=== PATIENT | female | born 1960 | race Caucasian/White ===

== ENCOUNTER → 2017-12-11 14:52 | Outpatient (CLI) | payer MEDICARE, OTHER, SELFPAY ==
[2017-12-11 17:49] LABS: Hematocrit 38.1 % (37-47); Hemoglobin 12.4 g/dl (12.0-15.0); Mean Corp Hgb Conc 32.5 g/gl (32-36); Mean Corpuscular Hgb 32.5 pg (27.0-32.0); Mean Platelet Vol. 10.9 fl (6.2-12.0); Platelet Count 227 K/mm3 (150-450); RBC Distribution Width CV 13.7 % (11.6-14.6); RBC Distribution Width SD 49.8 fl (35.1-43.9); Red Blood Count 3.81 M/mm3 (4.2-5.4); White Blood Count 5.7 K/mm3 (4.4-11.0)
[2017-12-11 17:51] LABS: Scan Indicated on CBC? Y/N NO
== END ==
PROVIDERS: Visit Provider Surgery
DX: K62.5 Hemorrhage of anus and rectum (principal)
CPT/HCPCS: 36415; 85027

== ENCOUNTER 2018-01-09 08:56 | Day surgery (SDC) | payer MEDICARE, OTHER, SELFPAY ==
[2018-01-09] VITALS (7 sets, daily range): BP systolic 141–158; BP diastolic 97–105; PULSE 78–91; RESP 16–18; TEMP 36.2–36.3; O2SAT 91–99; BMI 39.6
--- NOTE | 2018-01-09 11:30 | POL_PTH ---
PATIENT: ANABEL PURVIS LOC: EN U#:[id number] AGE/SX: 57/F ROOM: RE01/09/[address]: Dr. Giselle Moeller MD : 1960 BED: DIS: 01/09/2018 SPEC #: [id number] RECD: 01/09/18 12:35 STATUS: ANNIE ROLANDO #: [id number] [place]: 01/09/18 11:[address]: Giselle Moeller DEPT: SURGICAL PATHOLOGY RECD BY: Jose Salazar ENTERED: 01/09/18 13:09 SP TYPE: Polyp OT DR: Out of Town Doctor Tissues: A - Rectum, NOS B - Rectum, NOS C - Rectum, NOS D - POLYP Procedures: Surgery Specimen Level IV HEADER OPERATION: Colonoscopy with polypectomy; postop control of colonoscopy bleeding PRE-OP DIAGNOSIS: Rectal bleed; post colonoscopy bleeding TISSUE SUBMITTED: A ? Rectal polyp top, B - Rectal polyp mid, C - Rectal polyp base, D ? Rectal polyp and clips MICROSCOPIC DIAGNOSIS A. 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 B. 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 C. Rectal polyp, base, biopsy: Fragments of tubulovillous adenoma. D. Rectal polyp, biopsy: Fragments of tubulovillous adenoma. AM:jordan 01/10/18 MICROSCOPIC DESCRIPTION Slides are reviewed. GROSS DESCRIPTION A - Received in fixative is one container labeled with the patient's name and designated rectal polyp. The specimen consists of multiple irregular fragments of light [place] soft tissue that in aggregate measure 2.5 x 1.5 x 0.2 cm. Also present in the specimen container is a polypoid fragment of [place] rio tissue measuring 1.5 x 1.2 x 0.9 cm. This large fragment is inked, sectioned and totally submitted along with the smaller fragments in one cassette. B - Received in fixative is one container labeled with the patient's name and designated rectal polyp. The specimen consists of multiple irregular fragments of light [place] soft tissue that in aggregate measure 2.5 x 1.7 x 0.2 cm. The specimen is totally submitted in one cassette. C - Received in fixative is one container labeled with the patient's name and designated rectal polyp base. The specimen consists of a polypoid fragment of [place] rio tissue measuring 1.5 x 1.3 x 1 cm. This fragment is inked and serially sectioned. Also present in the specimen container are multiple irregular fragments of pink-del rio soft tissue that in aggregate measure 1 x 0.5 x 0.1 cm. The specimen is totally submitted in one cassette. Note, the largest inked fragment is trisected. D - Received in fixative is one container labeled with the patient's name and designated rectal polyp and clips. The specimen consists of three metallic clips adherent to an irregular fragment of pink-del rio soft tissue measuring 1.2 x 1 x 0.2 cm. The specimen is totally submitted in one cassette. / AM:jordan 01/09/18 TC:5 CPT: 02861 x4
[2018-01-09] MEDS: Bupiv/Epi 0.5% Mpf 30 ML Vial (11:44)
[2018-01-09] MEDS: Dibucaine 30 GM Tube 1 APPLIC (11:53)
[2018-01-09] MEDS: THROMBIN (RECOMBINANT) 20,000 UNIT VIAL 20000 UNIT TOPICAL (11:53)
--- NOTE | 2018-01-09 12:22 | OP.PCM_ITS ---
Report of Operation Date of Procedure: 01/09/18 Pre-Operative Diagnosis: Bright red bright blood per rectum Post-Operative Diagnosis: Rectal polyp, bleeding at rectal polypectomy site Surgery/Procedure Performed:: Colonoscopy with saline left, injection epinephrine, rectal polypectomy with snare, placement of 3 endoclips for control of bleeding. supervisor chassis assembly: Mika Savage Type of Anesthesia:: MAC Anesthesiologist: Ramirez Forrest Specimen's removed: 1. Rectal polyp top, 2. Rectal polyp middle, 3. Rectal polyp base Estimated Blood Loss (mL): 50 cc Description of Procedure: Procedure: Colonoscopy After reviewing the risks benefits, the patient was deemed in satisfactory condition to undergo procedure. After obtaining informed consent, the scope was passed under direct visualization. Throughout the procedure, the patient's blood pressure pulse and position saturations were monitored continuously anesthesia. The colonoscope was introduced through the anus and advanced to the cecum, identified by the appendiceal orifice, IC valve and transillumination. Quality of bowel prep was good. The ascending/transverse/descending/sigmoid colon were all normal without any polyp or masses. In the rectum about 7 cm from the anus there was larger rectal polyp. This was attempted to be removed with snare polypectomy which was done piecemeal sent for histology and initial saline lift of the broad base was done. After the last snare polypectomy there was a small arterial bleeder. Attempted to stop the bleeding with injection of epinephrine for a total of [address] Savage was also present at this time and also attempted to inject additional epinephrine as well as place 3 endoclips to control the bleeding. We were able to get the bleeding down to a slow ooze; however there was still a small area of the base of the polyp remaining and with the slow oozing decided to take the patient to the OR for control of bleeding and excision of the remaining polyp. The patient tolerated procedure well and remained hemodynamically stable throughout the procedure. Findings: Rectal polyp with bleeding at polypectomy site Impression: 1. Rectal polyp with bleeding polypectomy site. Rectal polyp was sent to pathology. Verbal consent was obtained from the patient's aunt due to the patient being sedated and we did proceed to the OR for control of bleeding and excision of remainder of rectal polyp. - Complications Bleeding at polypectomy site
--- NOTE | 2018-01-09 12:22 | PCM.OPRPT ---
Report of Operation Date of Procedure: 01/09/18 Pre-Operative Diagnosis: Bleeding and rectal polypectomy site Post-Operative Diagnosis: Same Surgery/Procedure Performed:: Control of bleeding and a rectal polypectomy site, excision of remaining rectal polyp grain origination specialist: Mika Savage Type of Anesthesia:: MAC Anesthesiologist: Ramirez Forrest Specimen's removed: Rectal polyp and endoclips Estimated Blood Loss (mL): 10 cc Description of Procedure: Patient was brought into the OR and placed in prone jackknife position on the OR table. MAC anesthesia was induced. local anesthesia was also used of 1% lidocaine with 0.25% Marcaine in a one-to-one mixture for 30 cc. Correct patient, procedure, site, positioning, special, was obtained prior to beginning procedure. Verbal consent was obtained from the patient's aunt as well as this was an emergent surgery for control of bleeding. Local anesthesia was injected around the anus after it was prepped draped in usual sterile fashion. The site of the rectal polyp was identified at 9:00 (left side) 2-0 chromic suture was placed at the apex. The remaining rectal polyp and endoclips were removed with electrocautery. Then the chromic suture was ran in a running locking fashion. Hemostasis was achieved. There was a small bleeder at her hemorrhoidal cushion on the left lateral which was also oversewn with 3-0 chromic [id number] suture. Hemostasis was achieved. Surgiform was rolled up with some thrombin and placed in her anus. ABD was placed between her gluteal clefts. Patient tolerated procedure well and was taken to the PACU in stable condition. - Complications none
--- NOTE | 2018-01-09 12:27 | OP.PCM_ITS ---
Report of Operation Date of Procedure: 01/09/18 Pre-Operative Diagnosis: Bleeding and rectal polypectomy site Post-Operative Diagnosis: Same Surgery/Procedure Performed:: Control of bleeding and a rectal polypectomy site , excision of remaining rectal polyp environmental test technician: Mika Savage Type of Anesthesia:: MAC Anesthesiologist: Ramirez Forrest Specimen's removed: Rectal polyp and endoclips Estimated Blood Loss (mL): 10 cc Description of Procedure: Patient was brought into the OR and placed in prone jackknife position on the OR table. MAC anesthesia was induced. local anesthesia was also used of 1% lidocaine with 0.25% Marcaine in a one-to-one mixture for 30 cc. Correct patient, procedure, site, positioning, special, was obtained prior to beginning procedure. Verbal consent was obtained from the patient's aunt as well as this was an emergent surgery for control of bleeding. Local anesthesia was injected around the anus after it was prepped draped in usual sterile fashion. The site of the rectal polyp was identified at 9:00 ( left side) 2-0 chromic suture was placed at the apex. The remaining rectal polyp and endoclips were removed with electrocautery. Then the chromic suture was ran in a running locking fashion. Hemostasis was achieved. There was a small bleeder at her hemorrhoidal cushion on the left lateral which was also oversewn with 3-0 chromic [id number] suture. Hemostasis was achieved. Surgiform was rolled up with some thrombin and placed in her anus. ABD was placed between her gluteal clefts. Patient tolerated procedure well and was taken to the PACU in stable condition. - Complications none
[2018-01-09] MEDS: HYDROcodone Bitartrate/Apap 5/325 Tablet PO (13:14)
== END 2018-01-09 13:35 | disposition home or self-care (01) ==
LOC: EN 08:58 → AC 08:59
PROVIDERS: Visit Provider Surgery
PROC: 0DJD8ZZ Inspection of Lower Intestinal Tract, Via Natural or Artificial Opening Endoscopic (ICD-10-PCS; CPT 45378; principal; 2018-01-09 09:55)
PROC: (CPT 45382; principal; 2018-01-09 11:15)
DX: D12.8 Benign neoplasm of rectum (principal); K91.840 Postprocedural hemorrhage of a digestive system organ or structure following a digestive system procedure; F10.10 Alcohol abuse, uncomplicated; I10 Essential (primary) hypertension; M19.90 Unspecified osteoarthritis, unspecified site; M51.26 Other intervertebral disc displacement, lumbar region; F41.9 Anxiety disorder, unspecified; F32.9 Major depressive disorder, single episode, unspecified; G47.30 Sleep apnea, unspecified; Z87.19 Personal history of other diseases of the digestive system; Z85.828 Personal history of other malignant neoplasm of skin; Z87.891 Personal history of nicotine dependence; Z78.0 Asymptomatic menopausal state; Z79.899 Other long term (current) drug therapy
CPT/HCPCS: 45382; 45385; 88305; J7120; A4216

== ENCOUNTER 2018-08-07 06:56 | Day surgery (SDC) | payer MEDICARE, OTHER, SELFPAY ==
--- NOTE | 2018-08-07 | COLBX_PTH ---
PATIENT: ANABEL PURVIS LOC: EN U#:[id number] AGE/SX: 57/F ROOM: RE08/07/[address]: Dr. Giselle Moeller MD : 1960 BED: DIS: 08/07/2018 SPEC #: [id number] RECD: 08/07/18 13:34 STATUS: ANNIE ROLANDO #: [id number] [place]: 08/07/18 00:[address]: Giselle Moeller DEPT: SURGICAL PATHOLOGY RECD BY: Narendra Saleem ENTERED: 08/07/18 13:35 SP TYPE: COLON BX OTHR DR: Out of [facility] Doctor Tissues: Transverse colon Procedures: Surgery Specimen Level IV HEADER OPERATION: Colonoscopy PRE-OP DIAGNOSIS: Previous polyp with high-grade dysplasia TISSUE SUBMITTED: Proximal transverse polyp MICROSCOPIC DIAGNOSIS Proximal transverse colon polyp, biopsy: Fragments of tubular adenoma. Fragments of fecal material. Negative for high-grade dysplasia. SJ:jordan 08/08/18 COMMENT Please make reference to previous specimen ([id number]), rectal polyps, top and mid, with diagnosis of fragments of tubulovillous adenoma with focal high-grade dysplasia and rectal polyp, base and rectal polyp, biopsy with diagnosis of fragments of tubulovillous adenoma. MICROSCOPIC DESCRIPTION Slides are reviewed. GROSS DESCRIPTION Received in fixative is one container labeled with the patient's name and designated proximal transverse polyp. The specimen consists of multiple irregular fragments of del rio soft tissue mixed with fecal material that in aggregate measure 2.5 x 0.5 x 0.1 cm. The specimen is totally submitted in one cassette. / JANIE:jordan 08/07/18 TC:1 CPT: 69709
[2018-08-07 07:17] VITALS: BP 152/88; PULSE 81; RESP 16; TEMP 36.5; O2SAT 98; BMI 39.3
--- NOTE | 2018-08-07 07:33 | HP.PCM_ITS ---
History of Present Illness Date of Admission: 08/07/18 The patient is a 57 year old F presents for screening colonoscopy due to previous tubular villous adenoma with focal high-grade dysplasia found at the tip away from the base on 01/09/18. This was removed completely as she initially had some bleeding at endoscopy and was taken to surgery for excision of this area and control of bleeding. Patient denies any abdominal pain, admits to daily bowel movements and denies any blood since her last scope. Denies any family history of colon cancer. Past Medical/Surgical History - Planned Operation Planned Operative Procedure/s: COLONOSCOPY Permit Signed: Yes S.O.S: No Is This Patient Having a Total Joint: No - Previous Hospitalizations/Surgeries HX Hospitalizations: No HX of Surgeries: RIGHT KNEE NMENISCUS REPAIR. RHINOPLASTY. SKIN CA REMOVED FROM LIP. COLONOSCOPY 01/09/18 Any Problems With Anesthesia: No You/Your Family Experience Fever (Hyperthermia) With Anes: No Cholinesterase deficiency: No - Cardiovascular Hx Chest Pain within Last 2 months: No Hx of Irregular Heartbeat and/or Afib: No Hx Heart Attack: No Hx Congestive Heart Failure: No Hx Rheumatic Fever: No Hx Hypertension: Yes - STATES CONTROLLED WITH MED Hx Internal Defibrillator: No Hx Pacemaker: No Hx Cardiac Catheterization: No Hx Cardiac Surgery/Stents/Etc.: No Hx Stress Test: No HX Edema: No Hx Pain in Legs when Walking/Leg Cramps: No - Respiratory Chronic Cough: No HX of Shortness of Breath: No Hoarseness: No Hx Chronic Obstructive Pulmonary Disease (COPD): No Hx Asthma: No Hx Emphysema: No Hx Sleep Apnea: Yes CPAP: No BIPAP: No Hx Respiratory Tract Infection/Cold (presently): No Result (for STOP score): Positive Hx Smoking: Yes - QUIT 1986 Smoking Status: Former smoker - Gastrointestinal Hx Gastroesophageal Reflux: No Hx Gastrointestinal Disorders: No Hx Gastrointestinal Bleed: Yes - BLOOD IN STOOL X1, NONE SINCE Hx Ulcer: No Hx Hiatal Hernia: No Difficulty Chewing/Swallowing: No Recent Onset of Swallowing Problems: No Special diet followed at home: No Hx Unplanned Weight Loss of 20#: No HX Unplanned Weight Gain of 20#: No - Neurological Hx Seizures: No HX Syncope/Blackout Spells/Unconsciousness: No Hx CVA/Stroke: No Hx Transient Ischemic Attacks (TIA): No Hx Multiple Sclerosis: No Hx Parkinson's Disease: No Hx Head/Neck Injury: No Hx Headaches: No Hx Back Injury/Pain: Yes - [id number]/ PAIN. DR JIMENEZ PAIN MANAGENENT Recent Onset of Speech Difficulty: No Restless Legs: No Does patient have nerve stimulator: No - Blood Disorder Hx Leukemia: No Bleeding Tendencies: No Hx Deep Vein Thrombosis: No Hx High Cholesterol: No Blood Transmitted Disease: No Hx Hepatitis: No Hx Cirrhosis: No Hx Anemia: No Hx Blood Disorders: No - Reproduction : No Is Patient Lactating: No Hx Hysterectomy: No Hx Tubal Ligation: No Are You Post Menopause: Yes - Genitourinary Hx Renal Disease: No - Musculoskeletal Hx Arthritis: Yes - BACK,KNEES,NECK Hx Rheumatoid Arthritis: No Hx Gout: No Recent Onset of an Orthopedic Problem: No - Endocrine Hx Diabetes: No Thyroid Disease: No Hx Steroid Therapy: Yes - 02/2017 - Psycho/Social Hx Substance Use: No Hx Alcohol Use: Yes - 4-5 DRINKS/DAY Hx Anxiety: Yes Hx Depression: Yes - MEDS/BIPOLAR Mental Illness: No Hx Dementia: No - Miscellaneous Hx Cancer: Yes - SKIN CA Recent Exposure to Contagious Disease: No Active MRSA: No Hx of C-Diff: No Any Loose Teeth: No Allergies levofloxacin [From Levaquin] Allergy (Severe, Verified 08/06/18 11:33) anaphylaxis - Discharge Is Pt Admitted From a Skilled Nursing, or a Fpc: No Who Could Help: AUNT After D/C, Where Do you Plan to Go: Return Home - Physical Exam General: Alert, Oriented x3, Cooperative, No apparent distress HEENT: Atraumatic Abdomen: Soft, Non Tender - No peritoneal signs, Non-Distended Extremities: No clubbing, No cyanosis, No edema Neurological: Cranial nerves II-XII grossly intact Psych/Mental Status: Normal Affect Vital Signs Temp Pulse Resp BP Pulse Ox 97.7 F L 81 16 152/88 H 98 08/07/18 07:17 08/07/18 07:17 08/07/18 07:17 08/07/18 07:17 08/07/18 07:17 Oxygen Delivery Method Room Air Weight: 236 lb 8.896 oz Body Mass Index (BMI) 39.3 Assessment/Plan 57-year-old female with history of tubular villous adenoma with focal high-grade dysplasia at the tip Surgery Risks - Colonoscopy I discussed with the patient the risks of the procedure: Yes Risks Include but are not Limited To: Risks include but are not limited to: Bleeding, perforation requiring further surgery, inability to complete colonoscopy requiring barium enema. Patient no further questions at this time.
[2018-08-07 08:28] VITALS: BP 146/105; BP 152/88; PULSE 79; RESP 16; TEMP 36.6; O2SAT 98
--- NOTE | 2018-08-07 08:31 | OP.ENDO_ITS ---
Patient Name: Mireille Boone Procedure Date: 08/07/2018 7:49 AM Date of : 1960 Age: 57 Procedure: Colonoscopy Indications: High risk colon cancer surveillance: Personal history of adenoma with high grade dysplasia Providers: Giselle Moeller MD Referring MD: Giselle Moeller MD Medicines: Monitored Anesthesia Care Patient Profile: Last Colonoscopy: December 2017. Complications: No immediate complications. Procedure: Pre-Anesthesia Assessment: - Prior to the procedure, a History and Physical was performed, and patient medications and allergies were reviewed. The patient's tolerance of previous anesthesia was also reviewed. The risks and benefits of the procedure and the sedation options and risks were discussed with the patient. All questions were answered, and informed consent was obtained. Prior Anticoagulants: The patient has taken no previous anticoagulant or antiplatelet agents. ASA Grade Assessment: II - A patient with mild systemic disease. After reviewing the risks and benefits, the patient was deemed in satisfactory condition to undergo the procedure. After I obtained informed consent, the scope was passed under direct vision. Throughout the procedure, the patient's blood pressure, pulse, and oxygen saturations were monitored continuously. The Colonoscope was introduced through the anus and advanced to the cecum, identified by the appendiceal orifice, ileocecal valve and palpation. The colonoscopy was performed without difficulty. The patient tolerated the procedure well. The quality of the bowel preparation was good. Scope In: 7:53:47 AM Scope Withdrawal Time 0 hours 20 minutes 29 seconds Scope Out: 8:22:26 AM Total Procedure Duration Time 0 hours 28 minutes 39 seconds Findings: The perianal and digital rectal examinations were normal. A 4 to 7 mm polyp was found in the proximal transverse colon. The polyp was sessile. The polyp was removed with a piecemeal technique using a hot snare. Resection and retrieval were complete. The retroflexed view of the distal rectum and anal verge was normal and showed no anal or rectal abnormalities. Impression: - One 4 to 7 mm polyp in the proximal transverse colon, removed piecemeal using a hot snare. Resected and retrieved. - The distal rectum and anal verge are normal on retroflexion view. Recommendation: - Discharge patient to home. - Continue present medications. - Await pathology results. - Repeat colonoscopy in 6-12 months for surveillance after piecemeal polypectomy. Procedure Code(s): --- Professional --- 00864, Colonoscopy, flexible; with removal of tumor(s), polyp(s), or other lesion(s) by snare technique Diagnosis Code(s): --- Professional --- D12.3, Benign neoplasm of transverse colon (hepatic flexure or splenic flexure) Z86.010, Personal history of colonic polyps CPT copyright 2017 [employer]. All rights reserved. The codes documented in this report are preliminary and upon cable strander review may be revised to meet current compliance requirements. MD Giselle Fabian MD 08/07/2018 8:31:00 AM This report has been signed electronically. Number of Addenda: 0 Note Initiated On: 08/07/2018 7:49 AM
[2018-08-07 08:34] VITALS: BP 148/101; BP 152/88; PULSE 78; RESP 18; O2SAT 97
[2018-08-07 08:40] VITALS: BP 144/100; BP 152/88; PULSE 76; RESP 18; O2SAT 96
[2018-08-07 08:47] VITALS: BP 137/102; BP 152/88; PULSE 75; RESP 18; TEMP 37.2; O2SAT 97
== END 2018-08-07 09:34 | disposition home or self-care (01) ==
LOC: EN 06:56 → AC 06:57
PROVIDERS: Referring Provider Surgery; Visit Provider Surgery
PROC: 0DJD8ZZ Inspection of Lower Intestinal Tract, Via Natural or Artificial Opening Endoscopic (ICD-10-PCS; CPT 45378; principal; 2018-08-07 07:55)
DX: D12.3 Benign neoplasm of transverse colon (principal); Z86.010 Personal history of colon polyps; I10 Essential (primary) hypertension; G47.30 Sleep apnea, unspecified; M17.0 Bilateral primary osteoarthritis of knee; M19.90 Unspecified osteoarthritis, unspecified site; F41.9 Anxiety disorder, unspecified; F32.9 Major depressive disorder, single episode, unspecified; F31.9 Bipolar disorder, unspecified; Z87.19 Personal history of other diseases of the digestive system; Z78.0 Asymptomatic menopausal state; Z85.828 Personal history of other malignant neoplasm of skin; Z79.899 Other long term (current) drug therapy; Z87.891 Personal history of nicotine dependence
CPT/HCPCS: 45385; 88305; J7120; A4648

== ENCOUNTER 2019-08-13 07:00 | Day surgery (SDC) | payer MEDICARE, OTHER, SELFPAY ==
[2019-03-15 09:10] VITALS: BMI 39.2
[2019-08-13 07:21] VITALS: BP 167/101; PULSE 83; RESP 16; TEMP 36.8; O2SAT 97; BMI 39.8
--- NOTE | 2019-08-13 07:42 | H&P.OPEN ---
History of Present Illness Date of Admission: 08/13/19 The patient is a 58 year old F presents for colonoscopy due to high risk. Patient had a tubular villous adenoma with high-grade dysplasia in the tip and middle part of the polyp in December 2017 this was completely removed in the OR due to bleeding which only showed a tubular villous adenoma no dysplasia in the base. Patient also had a repeat colonoscopy in July 2018 which only had a transverse polyp which was removed and was tubular adenoma. Patient denies any change in her medical history, denies any abdominal pain/nausea/vomiting/blood in her stool. Past Medical/Surgical History - Planned Operation Planned Operative Procedure/s: colonoscopy open access Date of Operative Procedure: 08/13/19 Permit Signed: No S.O.S: No Is This Patient Having a Total Joint: No - Previous Hospitalizations/Surgeries HX Hospitalizations: No HX of Surgeries: RIGHT KNEE NMENISCUS REPAIR. RHINOPLASTY. SKIN CA REMOVED FROM LIP. COLONOSCOPY 01/09/18. colonscopy with polypectomy 07/2019 Any Problems With Anesthesia: No You/Your Family Experience Fever (Hyperthermia) With Anes: No Cholinesterase deficiency: No - Cardiovascular Hx Chest Pain within Last 2 months: No Hx of Irregular Heartbeat and/or Afib: No Hx Heart Attack: No Hx Congestive Heart Failure: No Hx Rheumatic Fever: No Hx Hypertension: Yes - STATES CONTROLLED WITH MED Hx Internal Defibrillator: No Hx Pacemaker: No Hx Cardiac Catheterization: No Hx Cardiac Surgery/Stents/Etc.: No Hx Stress Test: No HX Edema: No Hx Pain in Legs when Walking/Leg Cramps: No - Respiratory Chronic Cough: No HX of Shortness of Breath: No Hoarseness: No Hx Chronic Obstructive Pulmonary Disease (COPD): No Hx Asthma: No Hx Emphysema: No Hx Sleep Apnea: No CPAP: No BIPAP: No Hx Oxygen Use at Home: No Hx Respiratory Tract Infection/Cold (presently): No Do You Snore Loudly (louder than talking or can be heard): No Do You Often Feel Tired/ Fatigued/ Sleepy Dring Daytime?: No Has Anyone Observed You Stop Breathing During Sleep?: No Result (for STOP score): Negative Hx Smoking: Yes - QUIT 1986 Smoking Status: Former smoker - Gastrointestinal Hx Gastroesophageal Reflux: No Hx Gastrointestinal Disorders: No Hx Gastrointestinal Bleed: Yes - BLOOD IN STOOL X1, NONE SINCE Hx Ulcer: No Hx Hiatal Hernia: No Difficulty Chewing/Swallowing: No Recent Onset of Swallowing Problems: No Special diet followed at home: No Hx Unplanned Weight Loss of 20#: No HX Unplanned Weight Gain of 20#: No - Neurological Hx Seizures: No HX Syncope/Blackout Spells/Unconsciousness: No Hx CVA/Stroke: No Hx Transient Ischemic Attacks (TIA): No Hx Multiple Sclerosis: No Hx Parkinson's Disease: No Hx Head/Neck Injury: No Hx Headaches: No Hx Back Injury/Pain: Yes - [id number]/ PAIN. DR JIMENEZ PAIN MANAGENENT Recent Onset of Speech Difficulty: No Restless Legs: No Does patient have nerve stimulator: No - Blood Disorder Hx Leukemia: No Bleeding Tendencies: No Hx Deep Vein Thrombosis: No Hx High Cholesterol: No Blood Transmitted Disease: No Hx Hepatitis: No Hx Cirrhosis: No Hx Anemia: No Hx Blood Disorders: No - Reproduction Is Patient Lactating: No Hx Hysterectomy: No Hx Tubal Ligation: No Are You Post Menopause: Yes - Genitourinary Hx Renal Disease: No - Musculoskeletal Hx Arthritis: Yes - BACK,KNEES,NECK Hx Rheumatoid Arthritis: No Hx Gout: No Recent Onset of an Orthopedic Problem: No - Endocrine Hx Diabetes: No Thyroid Disease: No Hx Steroid Therapy: No - . - Psycho/Social Hx Substance Use: No Hx Alcohol Use: Yes - 4-5 DRINKS/DAY Hx Anxiety: Yes Hx Depression: Yes - MEDS/BIPOLAR Mental Illness: No Hx Dementia: No - Miscellaneous Hx Cancer: Yes - SKIN CA Recent Exposure to Contagious Disease: No Active MRSA: No Hx of C-Diff: No Any Loose Teeth: No Allergies levofloxacin [From Levaquin] Allergy (Severe, Verified 08/13/19 07:19) anaphylaxis - Discharge Is Pt Admitted From a Longterm, or a Shelter: No Who Could Help: family After D/C, Where Do you Plan to Go: Return Home - Physical Exam Vitals/I&O's: Vital Signs Temp Pulse Resp BP Pulse Ox 98.2 F 83 16 167/101 H 97 08/13/19 07:21 08/13/19 07:21 08/13/19 07:21 08/13/19 07:21 08/13/19 07:21 Oxygen Delivery Method Room Air Weight: 239 lb 3.225 oz Body Mass Index (BMI) 39.8 General: Alert, Oriented x3, Cooperative, No apparent distress HEENT: Atraumatic Lungs: Normal air movement Cardiovascular: Regular rate Abdomen: Soft, Non Tender, Non-Distended Extremities: No clubbing, No cyanosis, No edema Neurological: Cranial nerves II-XII grossly intact Psych/Mental Status: Normal Affect Assessment/Plan 58-year-old female for high risk screening for colon cancer, personal history of tubovillous adenoma with high-grade dysplasia Surgery Risks - Colonoscopy I discussed with the patient the risks of the procedure: Yes Risks Include but are not Limited To: Risks include but are not limited to: Bleeding, perforation requiring further surgery, inability to complete colonoscopy requiring barium enema. Patient had no further questions at this time
--- NOTE | 2019-08-13 08:00 | COLBX_PTH ---
PATIENT: ANABEL PURVIS LOC: EN U#:[id number] AGE/SX: 58/F ROOM: RE08/13/[address]: Dr. Giselle Moeller MD : 1960 BED: DIS: 08/13/2019 SPEC #: [id number] RECD: 08/13/19 10:43 STATUS: ANNIE REAlvarado #: [id number] CARLOTA: 08/13/19 08:[address]: Giselle Moeller DEPT: SURGICAL PATHOLOGY RECD BY: Jose Salazar ENTERED: 08/13/19 12:10 SP TYPE: COLON BX OTHR DR: Dr. Jorge Montenegro MD Tissues: POLYP Procedures: Surgery Specimen Level IV HEADER OPERATION: Colonoscopy, open access (MAC) PRE-OP DIAGNOSIS: History tubovillous adenoma with high grade dysplasia TISSUE SUBMITTED: Ileocecal valve broad based polyp biopsy MICROSCOPIC DIAGNOSIS Ileocecal valve polyp, biopsy: Fragments of tubular adenoma. AM:jordan 08/14/19 MICROSCOPIC DESCRIPTION Slides are reviewed. GROSS DESCRIPTION Received in fixative is one container labeled with the patient's name and designated ileocecal valve broad based polyp biopsy. The specimen consists of multiple irregular fragments of [place] soft tissue that in aggregate measure 1 x 0.3 x 0.1 cm. The specimen is totally submitted in one cassette. / SJ:jordan 08/13/19 TC:5 CPT: 66854
[2019-08-13 08:31] VITALS: BP 134/97; BP 167/101; PULSE 80; RESP 16; TEMP 36.2; O2SAT 93
[2019-08-13 08:35] VITALS: BP 129/94; BP 167/101; PULSE 81; RESP 16; O2SAT 94
[2019-08-13 08:40] VITALS: BP 132/90; BP 167/101; PULSE 79; RESP 16; O2SAT 94
--- NOTE | 2019-08-13 08:41 | OP.ENDO_ITS ---
08/13/2019 Jorge Montenegro Md Re : Colonoscopy procedure for Mireille Boone Dear Moni This procedure was performed on Tuesday, August 13, 2019. My impressions and recommendations are as follows: Impressions : - Hemorrhoids found on perianal exam. - Diverticulosis in the sigmoid colon. - One 9 to 12 mm polyp at the ileocecal valve. Biopsied. - The examination was otherwise normal. Recommendations : - Discharge patient to home. - High fiber diet. - Continue present medications. - Await pathology results. - Refer to a geoscientist at appointment to be scheduled. - Repeat colonoscopy with GI to be scheduled incomplete polyp resection on ileocecal valve. My findings are described in the full procedure note, which is enclosed. If I can be of further assistance, please feel free to contact me at Doctor phone number(s): , Work: . Sincerely, MD Giselle Fabian MD 08/13/2019 8:41:00 AM This report has been signed electronically.
[2019-08-13 08:45] VITALS: BP 137/99; BP 167/101; PULSE 76; RESP 16; TEMP 36.2; O2SAT 96
[2019-08-13 08:49] VITALS: BP 167/101
== END 2019-08-13 09:20 | disposition home or self-care (01) ==
LOC: EN 07:01 → AC 07:03
PROVIDERS: Family Provider Family Medicine; PCP Family Medicine; Referring Provider Family Medicine; Visit Provider Surgery
PROC: 0DJD8ZZ Inspection of Lower Intestinal Tract, Via Natural or Artificial Opening Endoscopic (ICD-10-PCS; CPT 45378; principal; 2019-08-13 07:55)
DX: D12.0 Benign neoplasm of cecum (principal); K57.30 Diverticulosis of large intestine without perforation or abscess without bleeding; K64.9 Unspecified hemorrhoids; Z86.010 Personal history of colon polyps; I10 Essential (primary) hypertension; F31.9 Bipolar disorder, unspecified; F41.9 Anxiety disorder, unspecified; Z78.0 Asymptomatic menopausal state; Z87.19 Personal history of other diseases of the digestive system; Z85.828 Personal history of other malignant neoplasm of skin; Z79.899 Other long term (current) drug therapy; Z87.891 Personal history of nicotine dependence
CPT/HCPCS: 45380; 88305; J7120; J2405

== ENCOUNTER 2021-01-05 09:13 | Day surgery (SDC) | payer MEDICARE, OTHER, SELFPAY ==
[2021-01-05 09:31] VITALS: BP 114/74; PULSE 66; RESP 16; TEMP 36.8; O2SAT 100; BMI 32.5
[2021-01-05] MEDS: Lactated Ringers 1,000 ML 100 ML IV (09:55)
--- NOTE | 2021-01-05 10:40 | H&P.OPEN ---
History of Present Illness Date of Admission: 01/05/21 The patient is a 60 year old F presents for screening colonoscopy due to history of tubovillous adenomas. Patient's last colonoscopy was October 2019 where they were unable to also remove the ileocecal tubulovillous polyp. Patient did have a robotic right hemicolectomy single port at in December 2019. Previous to 2019 patient also had a colonoscopy in October and July 2019 & in October there was a tubulovillous polyp at the rectum which was removed completely surgically and in July 2019 the tubulovillous adenoma at the ileocecal valve was found. And states she is doing well has had quite a bit of weight loss and has stopped drinking. Past Medical/Surgical History - Planned Operation Planned Operative Procedure/s: colonoscopy Date of Operative Procedure: 01/05/21 Permit Signed: No S.O.S: No Is This Patient Having a Total Joint: No - Previous Hospitalizations/Surgeries HX Hospitalizations: Yes HX of Surgeries: RIGHT KNEE MENISCUS REPAIR. RHINOPLASTY. SKIN CA REMOVED FROM LIP. COLONOSCOPY 01/09/18. colonscopy with polypectomy 07/2019. 12/2019 biotic right hemicolectomy at single port due to large tubulovillous adenoma unable to be removed endoscopically. colonoscopy 12/2020 Any Problems With Anesthesia: No You/Your Family Experience Fever (Hyperthermia) With Anes: No Cholinesterase deficiency: No - Cardiovascular Hx Chest Pain within Last 2 months: No Hx of Irregular Heartbeat and/or Afib: No Hx Heart Attack: No Hx Congestive Heart Failure: No Hx Rheumatic Fever: No Hx Hypertension: Yes - STATES CONTROLLED WITH MED Hx Internal Defibrillator: No Hx Pacemaker: No Hx Cardiac Catheterization: No Hx Cardiac Surgery/Stents/Etc.: No Hx Stress Test: No HX Edema: No Hx Pain in Legs when Walking/Leg Cramps: No - Respiratory Chronic Cough: No HX of Shortness of Breath: No Hoarseness: No Hx Chronic Obstructive Pulmonary Disease (COPD): No Hx Asthma: No Hx Emphysema: No Hx Sleep Apnea: No CPAP: No BIPAP: No Hx Oxygen Use at Home: No Hx Respiratory Tract Infection/Cold (presently): No Do You Snore Loudly (louder than talking or can be heard): No Do You Often Feel Tired/ Fatigued/ Sleepy Dring Daytime?: No Has Anyone Observed You Stop Breathing During Sleep?: No Result (for STOP score): Negative Hx Smoking: Yes - QUIT 1986 Smoking Status: Former smoker - Gastrointestinal Hx Gastroesophageal Reflux: No Hx Gastrointestinal Disorders: No - polypectomy Hx Gastrointestinal Bleed: No Hx Ulcer: No Hx Hiatal Hernia: No Difficulty Chewing/Swallowing: No Recent Onset of Swallowing Problems: No Special diet followed at home: No Hx Unplanned Weight Loss of 20#: No HX Unplanned Weight Gain of 20#: No - Neurological Hx Seizures: No HX Syncope/Blackout Spells/Unconsciousness: No Hx CVA/Stroke: No Hx Transient Ischemic Attacks (TIA): No Hx Multiple Sclerosis: No Hx Parkinson's Disease: No Hx Head/Neck Injury: No Hx Headaches: No Hx Back Injury/Pain: Yes - [id number]/ PAIN. DR JIMENEZ PAIN MANAGENENT Recent Onset of Speech Difficulty: No Restless Legs: No Does patient have nerve stimulator: No - Blood Disorder Hx Leukemia: No Bleeding Tendencies: No Hx Deep Vein Thrombosis: No Hx High Cholesterol: No Blood Transmitted Disease: No Hx Hepatitis: No Hx Cirrhosis: No Hx Anemia: No Hx Blood Disorders: No - Reproduction Is Patient Lactating: No Hx Hysterectomy: No Hx Tubal Ligation: No Are You Post Menopause: Yes - Genitourinary Hx Renal Disease: No - Musculoskeletal Hx Arthritis: Yes - BACK,KNEES,NECK Hx Rheumatoid Arthritis: No Hx Gout: No Recent Onset of an Orthopedic Problem: No - Endocrine Hx Diabetes: No Thyroid Disease: No Hx Steroid Therapy: No - . - Psycho/Social Hx Substance Use: No Hx Alcohol Use: No Hx Anxiety: Yes Hx Depression: Yes Mental Illness: No - Bipolar on meds/ ADHD Hx Dementia: No - Miscellaneous Hx Cancer: Yes - SKIN CA on lips Recent Exposure to Contagious Disease: No Active MRSA: No Hx of C-Diff: No Any Loose Teeth: No Additional information pertinent to anesthesia:: none Allergies levofloxacin [From Levaquin] Allergy (Severe, Verified 01/05/21 09:30) anaphylaxis - Discharge Is Pt Admitted From a Custodial, or a [place] [facility]: No Who Could Help: family After D/C, Where Do you Plan to Go: Return Home - Physical Exam Vitals/I&O's: Vital Signs Temp Pulse Resp BP Pulse Ox 98.2 F 66 16 114/74 100 01/05/21 09:31 01/05/21 09:31 01/05/21 09:31 01/05/21 09:31 01/05/21 09:31 Oxygen Delivery Method Room Air Weight: 189 lb 6.033 oz Body Mass Index (BMI) 32.5 General: Alert, Oriented x3, Cooperative, No apparent distress HEENT: Atraumatic Lungs: Normal air movement Cardiovascular: Regular rate Abdomen: Soft, Non Tender, Non-Distended Extremities: No clubbing, No cyanosis, No edema Neurological: Cranial nerves II-XII grossly intact Psych/Mental Status: Normal Affect Current Medications Lactated Ringer's () 1,000 mls @ 100 mls/hr IV .Q10H JACY Last Admin: 01/05/21 09:55 Dose: 100 mls/hr Documented by: Assessment/Plan 60-year-old female with history of tubulovillous polyps Procedure Criteria Procedure Type: Elective COVID Risk Discussion: The surgeon/proceduralist and patient have discussed in detail the risk of exposure to and/or potential harm posed by the COVID-19 virus with having a surgery/procedure at this time versus the risk of delaying the surgery/procedure. It is not possible to know either the risk of delaying the surgery or procedure or chance of getting an infection with perfect accuracy, but a joint decision was made between the patient and the surgeon/proceduralist to proceed at this time with the scheduled surgery/procedure as indicated on the consent form. Surgery Risks - Colonoscopy I discussed with the patient the risks of the procedure: Yes Risks Include but are not Limited To: Risks include but are not limited to: Bleeding, perforation requiring further surgery, inability to complete colonoscopy requiring barium enema.
[2021-01-05 11:18] VITALS: BP 108/82; BP 114/74; PULSE 72; RESP 18; TEMP 36.4; O2SAT 100
[2021-01-05 11:25] VITALS: BP 114/74; BP 114/86; PULSE 71; RESP 18; O2SAT 100
[2021-01-05 11:30] VITALS: BP 111/81; BP 114/74; PULSE 70; RESP 18; O2SAT 100
[2021-01-05 11:35] VITALS: BP 114/74; BP 117/84; PULSE 68; RESP 18; TEMP 36.1; O2SAT 100
[2021-01-05 12:01] VITALS: BP 114/74
--- NOTE | 2021-01-05 12:42 | OP.CCLET_ITS ---
01/05/2021 Jorge Montenegro Md Re : Colonoscopy procedure for Mireille Boone Dear Moni This procedure was performed on Tuesday, January 05, 2021. My impressions and recommendations are as follows: Impressions : - Hemorrhoids found on perianal exam. - Non-bleeding external and internal hemorrhoids. - The entire examined colon is normal. - No specimens collected. Recommendations : - Discharge patient to home. - Resume previous diet. - Continue present medications. - Repeat colonoscopy for surveillance. - Repeat colonoscopy in 3 years for surveillance of polyps greater than 1 cm in size. My findings are described in the full procedure note, which is enclosed. If I can be of further assistance, please feel free to contact me at Doctor phone number(s): , Work: . Sincerely, MD Giselle Fabian MD 01/05/2021 11:27:13 AM This report has been signed electronically.
--- NOTE | 2021-01-05 12:42 | OP.COLON_ITS ---
Patient Name: Mireille Boone Procedure Date: 01/05/2021 10:46 AM Date of : 1960 Age: 60 Procedure: Colonoscopy Indications: High risk colon cancer surveillance: Personal history of adenoma (10 mm or greater in size), High risk colon cancer surveillance: Personal history of adenoma with villous component Providers: Giselle Moeller MD Referring MD: Jorge Montenegro Md Medicines: Monitored Anesthesia Care Patient Profile: This is a 60 year old female. Last Colonoscopy: 1 year ago. Complications: No immediate complications. Procedure: Pre-Anesthesia Assessment: - Prior to the procedure, a History and Physical was performed, and patient medications and allergies were reviewed. The patient's tolerance of previous anesthesia was also reviewed. The risks and benefits of the procedure and the sedation options and risks were discussed with the patient. All questions were answered, and informed consent was obtained. Prior Anticoagulants: The patient has taken no previous anticoagulant or antiplatelet agents. ASA Grade Assessment: Per anesthesia. After reviewing the risks and benefits, the patient was deemed in satisfactory condition to undergo the procedure. After I obtained informed consent, the scope was passed under direct vision. Throughout the procedure, the patient's blood pressure, pulse, and oxygen saturations were monitored continuously. The colonoscope was introduced through the anus and advanced to the ileocolonic anastomosis. The colonoscopy was performed without difficulty. The patient tolerated the procedure well. The quality of the bowel preparation was good. Scope In: 10:58:16 AM Scope Withdrawal Time 0 hours 12 minutes 28 seconds Scope Out: 11:16:25 AM Total Procedure Duration Time 0 hours 18 minutes 9 seconds Findings: Hemorrhoids were found on perianal exam. Non-bleeding external and internal hemorrhoids were found. The hemorrhoids were Grade I (internal hemorrhoids that do not prolapse). The entire examined colon appeared normal. Impression: - Hemorrhoids found on perianal exam. - Non-bleeding external and internal hemorrhoids. - The entire examined colon is normal. - No specimens collected. Recommendation: - Discharge patient to home. - Resume previous diet. - Continue present medications. - Repeat colonoscopy for surveillance. - Repeat colonoscopy in 3 years for surveillance of polyps greater than 1 cm in size. Procedure Code(s): --- Professional --- G0105, Colorectal cancer screening; colonoscopy on individual at high risk Diagnosis Code(s): --- Professional --- K64.0, First degree hemorrhoids Z86.010, Personal history of colonic polyps CPT copyright 2017 [employer]. All rights reserved. The codes documented in this report are preliminary and upon director of officiating review may be revised to meet current compliance requirements. MD Giselle Fabian MD 01/05/2021 11:27:13 AM This report has been signed electronically. Number of Addenda: 0 Note Initiated On: 01/05/2021 10:46 AM
== END 2021-01-05 12:05 | disposition home or self-care (01) ==
LOC: EN 09:14 → AC 09:15
PROVIDERS: PCP Family Medicine; Referring Provider Family Medicine; Visit Provider Surgery
PROC: 0DJD8ZZ Inspection of Lower Intestinal Tract, Via Natural or Artificial Opening Endoscopic (ICD-10-PCS; CPT 45378; principal; 2021-01-05 10:25)
DX: Z12.11 Encounter for screening for malignant neoplasm of colon (principal); K64.0 First degree hemorrhoids; K64.4 Residual hemorrhoidal skin tags; Z86.010 Personal history of colon polyps; I10 Essential (primary) hypertension; M19.90 Unspecified osteoarthritis, unspecified site; F41.9 Anxiety disorder, unspecified; F31.9 Bipolar disorder, unspecified; Z78.0 Asymptomatic menopausal state; Z85.828 Personal history of other malignant neoplasm of skin; Z79.899 Other long term (current) drug therapy; Z87.891 Personal history of nicotine dependence
CPT/HCPCS: G0105; J7120

== ENCOUNTER 2024-02-06 07:02 | Day surgery (SDC) | payer MEDICARE, OTHER, SELFPAY ==
--- NOTE | 2024-02-06 07:12 | H&P.OPEN ---
HPI - General General Date of Service: 02/06/24 HPI Narrative ANABEL CASTELLONL, is a 63 F who presents for a screening colonoscopy due to history of tubular villous adenomas. Last colonoscopy was December 2020 no polyps seen at that time last tubovillous was removed in 2019 after patient had to have a robotic hemicolectomy at -jul 2019. Patient has bowel moods daily denies any blood. Denies any current abdominal pain/nausea/vomiting/reflux. [facility] Medical History (Updated 02/06/24 @ 07:[address] Giselle Moeller MD) Alcohol use Arthritis Back pain Cancer Chronic back pain Chronic neck pain Depression Former smoker Hemorrhoids History of adenomatous polyp of colon History of steroid therapy HTN (hypertension) Injury of back Lumbar herniated disc Osteoarthritis Post-menopausal Rheumatoid arthritis Wears dentures Wears glasses Home Medications atenolol 100 mg tablet 100 mg PO QDAY BP 12/11/17 [History Last Taken 01/05/21] hydrocodone 5 mg-acetaminophen 300 mg tablet (Vicodin) 1 tab PO Q6H PRN Pain 12/11/17 [History Last Taken Unknown] levomilnacipran 80 mg capsule,24 hr,extended release (Fetzima) 40 mg PO QDAY DEPRESSION 12/11/17 [History Last Taken Unknown] lisdexamfetamine 50 mg capsule (Vyvanse) 50 mg PO QAM ADHD 12/11/17 [History Last Taken Unknown] lurasidone 80 mg tablet (Latuda) 60 mg PO QHS BIPOLAR 12/11/17 [History Last Taken Unknown] trazodone 150 mg tablet 300 mg PO QHS PRN Sleep 12/11/17 [History Last Taken Unknown] acyclovir 5 % topical cream 1 applic topical ONCE PRN SORE 12/24/23 [History Last Taken Unknown] calcium phosphate 250 mg-vit D3 12.5 mcg (500 unit) chewable tablet 1 tab PO DAILY 12/24/23 [History Last Taken Unknown] cholecalciferol (vitamin D3) 50 mcg (2,000 unit) capsule 50 mcg PO 3XW 12/24/23 [History Last Taken Unknown] diphenhydramine HCl 25 mg tablet (Allergy Relief (diphenhydramine)) 25 mg PO QHS 12/24/23 [History Last Taken Unknown] hydroxychloroquine 200 mg tablet 200 mg PO DAILY 12/24/23 [History Last Taken Unknown] vitamin B complex 1 tab PO DAILY 12/24/23 [History Last Taken Unknown] vitamin A-vitamin C-vit E-min tablet (Ocutabs tablet) 1 tab PO DAILY 02/04/24 [History Last Taken Unknown] Allergy/AdvReac Type Severity Reaction Status Date / Time levofloxacin [From Levaquin] Allergy Severe anaphylaxis Verified 02/04/24 11:36 codeine Allergy NEEDS Verified 02/04/24 11:36 FOLLOW-UP Family History Mother Diabetes Hypertension Asthma Cancer pancreas Father Cancer lung Surgical History (Updated 02/04/24 @ 11:47 by Chacha Suarez) Hx of colonoscopy Hx of repair of right rotator cuff S/P lateral meniscus repair of right knee S/P rhinoplasty Social History (Updated 12/24/23 @ 12:52 by Shefali Gottlieb) household members: none and other details: current occupational status: disabled Smoking Status: Former smoker alcohol intake: former substance use type: does not use Past Medical/Surgical History Planned Operation Planned Operative Procedure/s: COLONOSCOPY-OA S.O.S: No Previous Hospitalizations/Surgeries HX Hospitalizations: No HX of Surgeries: RIGHT KNEE MENISCUS REPAIR RHINOPLASTY SKIN CA REMOVED FROM LIP COLONOSCOPY 01/09/18 colonscopy with polypectomy 07/2019 biotic right hemicolectomy at single port due to large tubulovillous adenoma unable to be removed endoscopically colonoscopy 12/2020 Any Problems With Anesthesia: No You/Your Family Experience Fever (Hyperthermia) With Anes: No Cholinesterase deficiency: No Cardiovascular Hx Chest Pain within Last 2 months: No Hx of Irregular Heartbeat and/or Afib: No Hx Heart Attack: No Hx Congestive Heart Failure: No Hx Rheumatic Fever: No Hx Hypertension: Yes (STATES CONTROLLED WITH MED) Hx Internal Defibrillator: No Hx Pacemaker: No Hx Cardiac Catheterization: No Hx Cardiac Surgery/Stents/Etc.: No Hx Stress Test: No Hx Pain in Legs when Walking/Leg Cramps: No Respiratory Chronic Cough: No HX of Shortness of Breath: No Hoarseness: No Hx Chronic Obstructive Pulmonary Disease (COPD): No Hx Asthma: No Hx Emphysema: No Hx Sleep Apnea: No CPAP: No BIPAP: No Hx Respiratory Tract Infection/Cold (presently): No Do You Snore Loudly (louder than talking or can be heard): No Do You Often Feel Tired/ Fatigued/ Sleepy Dring Daytime?: No Has Anyone Observed You Stop Breathing During Sleep?: No Result (for STOP score): Negative Hx Smoking: Yes (QUIT 1986) Smoking Status: Former smoker Gastrointestinal Hx Gastrointestinal Disorders: No (polypectomy) Hx Gastrointestinal Bleed: No Hx Ulcer: No Hx Hiatal Hernia: No Difficulty Chewing/Swallowing: No Special diet followed at home: No Hx Unplanned Weight Loss of 20#: No HX Unplanned Weight Gain of 20#: No Neurological Hx Seizures: No HX Syncope/Blackout Spells/Unconsciousness: No Hx Transient Ischemic Attacks (TIA): No Hx Multiple Sclerosis: No Hx Parkinson's Disease: No Hx Head/Neck Injury: No Hx Headaches: No Hx Back Injury/Pain: Yes ([id number]/ PAIN. DR JIMENEZ PAIN MANAGENENT) Recent Onset of Speech Difficulty: No Restless Legs: No Does patient have nerve stimulator: No Blood Disorder Hx Leukemia: No Bleeding Tendencies: No Hx Deep Vein Thrombosis: No Hx High Cholesterol: No Blood Transmitted Disease: No Hx Hepatitis: No Hx Cirrhosis: No Hx Anemia: No Hx Blood Disorders: No Reproduction Is Patient Lactating: No Hx Hysterectomy: No Hx Tubal Ligation: No Are You Post Menopause: Yes Genitourinary Hx Renal Disease: No Musculoskeletal Hx Arthritis: Yes (BACK,KNEES,NECK) Hx Rheumatoid Arthritis: No Hx Gout: No Recent Onset of an Orthopedic Problem: No Endocrine Hx Diabetes: No Thyroid Disease: No Hx Steroid Therapy: No (.) Psycho/Social Hx Substance Use: No Hx Alcohol Use: No Hx Anxiety: Yes Hx Depression: Yes Mental Illness: No (Bipolar on meds/ ADHD) Hx Dementia: No Miscellaneous Hx Cancer: Yes (SKIN CA on lips) Recent Exposure to Contagious Disease: No Hx of C-Diff: No Any Loose Teeth: No Allergies levofloxacin [From Levaquin] Allergy (Severe, Verified 02/04/24 11:36) anaphylaxis codeine Allergy (Verified 02/04/24 11:36) NEEDS FOLLOW-UP Discharge Is Pt Admitted From a [facility], or a Residential: No From the PAT History Number of Risk Factors: 4 Physical Exam Const alert, oriented x3 and no apparent distress HEENT normocephalic and head/scalp atraumatic Resp normal respiratory effort Cardio regular rate GI soft to palpation and non-tender; Negative for non-distended Palpation: Negative for guarding Extremity no clubbing, cyanosis or edema Skin no rashes or lesions noted Neuro CN's II-XII intact bilaterally Psych mental status grossly normal Assessment & Plan Assessment/Plan (1) History of adenomatous polyp of colon: Surgery Risks - Colonoscopy I discussed with the patient the risks of the procedure: Yes Risks Include but are not Limited To: Risks include but are not limited to: Bleeding, perforation requiring further surgery, inability to complete colonoscopy requiring barium enema.
[2024-02-06] MEDS: Lactated Ringers 1,000 ML 15 ML IV (07:36)
[2024-02-06 07:37] VITALS: BP 127/74; PULSE 88; RESP 16; TEMP 36.8; O2SAT 99; BMI 30.4
[2024-02-06 08:05] VITALS: BP 127/74; BP 93/69; PULSE 86; RESP 16; TEMP 36.3; O2SAT 100
--- NOTE | 2024-02-06 08:07 | OP.COLON_ITS ---
Patient Name: Mireille Boone Procedure Date: 02/06/2024 7:26 AM Date of : 1960 Age: 63 Procedure: Colonoscopy Indications: High risk colon cancer surveillance: Personal history of adenoma with villous component Providers: Giselle Moeller MD Referring MD: Jorge Montenegro Md Medicines: Monitored Anesthesia Care Patient Profile: This is a 63 year old female. Last Colonoscopy: December 2020. Complications: No immediate complications. Procedure: Pre-Anesthesia Assessment: - Prior to the procedure, a History and Physical was performed, and patient medications and allergies were reviewed. The patient's tolerance of previous anesthesia was also reviewed. The risks and benefits of the procedure and the sedation options and risks were discussed with the patient. All questions were answered, and informed consent was obtained. Prior Anticoagulants: The patient has taken no anticoagulant or antiplatelet agents. ASA Grade Assessment: Per anesthesia. After reviewing the risks and benefits, the patient was deemed in satisfactory condition to undergo the procedure. After I obtained informed consent, the scope was passed under direct vision. Throughout the procedure, the patient's blood pressure, pulse, and oxygen saturations were monitored continuously. The Colonoscope was introduced through the anus and advanced to the ileocolonic anastomosis. The colonoscopy was performed without difficulty. The patient tolerated the procedure well. The quality of the bowel preparation was good. Scope In: 7:48:33 AM Scope Withdrawal Time 0 hours 7 minutes 37 seconds Scope Out: 8:00:17 AM Total Procedure Duration Time 0 hours 11 minutes 44 seconds Findings: Previous colonic anastomosis widely patent. The entire examined colon appeared normal on direct and retroflexion views. Impression: - The entire examined colon is normal on direct and retroflexion views. - No specimens collected. Recommendation: - Discharge patient to home. - Resume previous diet. - Continue present medications. - Repeat colonoscopy in 3 years for surveillance. Procedure Code(s): --- Professional --- G0105, PT, Colorectal cancer screening; colonoscopy on individual at high risk Diagnosis Code(s): --- Professional --- Z86.010, Personal history of colonic polyps CPT copyright 2021 [employer]. All rights reserved. The codes documented in this report are preliminary and upon medical records coder review may be revised to meet current compliance requirements. MD Giselle Fabian MD 02/06/2024 8:07:15 AM This report has been signed electronically. Number of Addenda: 0 Note Initiated On: 02/06/2024 7:26 AM
--- NOTE | 2024-02-06 08:08 | OP.CCLET_ITS ---
02/06/2024 Jorge Montenegro Md Re : Colonoscopy procedure for Mireille Boone Dear Moni This procedure was performed on Tuesday, February 06, 2024. My impressions and recommendations are as follows: Impressions : - The entire examined colon is normal on direct and retroflexion views. - No specimens collected. Recommendations : - Discharge patient to home. - Resume previous diet. - Continue present medications. - Repeat colonoscopy in 3 years for surveillance. My findings are described in the full procedure note, which is enclosed. If I can be of further assistance, please feel free to contact me at Doctor phone number(s): , Work: . Sincerely, MD Giselle Fabian MD 02/06/2024 8:07:15 AM This report has been signed electronically.
[2024-02-06 08:10] VITALS: BP 127/74; BP 95/67; PULSE 84; RESP 16; O2SAT 98
[2024-02-06 08:15] VITALS: BP 127/74; BP 97/70; PULSE 81; RESP 16; TEMP 36.2; O2SAT 98
[2024-02-06 08:27] VITALS: BP 127/74
== END 2024-02-06 08:40 | disposition home or self-care (01) ==
LOC: EN 07:02 → AC 07:04
PROVIDERS: PCP Family Medicine; Referring Provider Family Medicine; Visit Provider Surgery
PROC: 0DJD8ZZ Inspection of Lower Intestinal Tract, Via Natural or Artificial Opening Endoscopic (ICD-10-PCS; CPT 45378; principal; 2024-02-06 08:25)
DX: Z12.11 Encounter for screening for malignant neoplasm of colon (principal); Z87.891 Personal history of nicotine dependence; I10 Essential (primary) hypertension; Z86.010 Personal history of colon polyps
CPT/HCPCS: G0105; J7120; J2405